=== PATIENT | female | born 1940 | race Caucasian/White ===

== ENCOUNTER → 2017-04-09 17:39 | Outpatient (CLI) | payer MEDICARE, OTHER, SELFPAY | PROVIDERS: Visit Provider Urology | DX: R31.9 Hematuria, unspecified (principal) | CPT/HCPCS: 87086 ==

== ENCOUNTER 2017-05-15 06:47 | Day surgery (SDC) | payer MEDICARE, OTHER, SELFPAY ==
[2017-05-15 07:05] VITALS: BP 122/79; PULSE 60; RESP 18; TEMP 36.6; O2SAT 96; BMI 24.3
[2017-05-15] MEDS: Lubricating Jelly 60 GM Tube 30 GM TOPICAL (08:06)
[2017-05-15] MEDS: Cefazolin 2 GM in 0.9% Normal Saline 100 ML IV (08:34)
[2017-05-15] MEDS: Lidocaine Jelly 2% 20 ML Syringe (URO-JET) 20 APPLIC (08:36)
--- NOTE | 2017-05-15 09:00 | DCINST_ITS ---
Discharge Diet: Light diet - advance as tolerated Discharge Activity: Return to Normal Activity Allergies/Adverse Reactions: Allergies cefuroxime Allergy (Mild, Verified 05/15/17 07:03) Rash Medications to take at Discharge Calcium Carbonate [Calcium] 600 mg PO BID 05/07/17 Cartilage/Collagen/Bor/Hyalur [Joint Health Tablet] 2 each PO DAILY 05/07/17 Cholecalciferol (Vitamin D3) [Vitamin D3] 1,000 unit PO DAILY 05/07/17 Estradiol [Estrace Vaginal Cream] 1 gm VAGINAL MOWE 05/07/17 Flaxseed Oil 1,000 mg PO BID 05/07/17 [place] 3,6,9 Combination No.7 [[place] Dha] 13 mg PO BID 05/07/17 Red Yeast Rice 600 mg PO BID 05/07/17 Rivaroxaban [Xarelto] 10 mg PO DAILY 05/07/17 Ubidecarenone/Vitamin E Mixed [Fvv56-Kni E 200 mg-20 Unit Sfg] 1 each PO BID Cephalexin [Keflex] 500 mg PO Q8 #9 cap 05/15/17 Primary Care Physician: Andreia Blake MD [Primary Care Provider] - Please Follow Up With: Alec Mariee MD - call if need to change appt. When: Appt ThursdayMay 25 at 3 pm.
--- NOTE | 2017-05-15 09:01 | PCM.OPRPT ---
Report of Operation Date of Procedure: 05/15/17 Pre-Operative Diagnosis: Gross hematuria and history of recurrent UTIs Post-Operative Diagnosis: Same, mild right UPJ obstruction Surgery/Procedure Performed:: Cystoscopy and bilateral retrograde pyelograms Description of Surgical Findings:: Testing 123, 76-year-old female who has been reporting gross hematuria off and on and also has a history of recurrent urinary tract infections presents for cystoscopy and bilateral retrograde pyelograms of further evaluation as to the cause of the hematuria and also the infections. After smooth induction of a MAC local she is placed in dorsal lithotomy position the patient was examined the urethra and perineal area are fairly dry and atrophic. The urethra is normal in length. Cystoscopy was performed looked inside the bladder she had a fairly fire friable bladder bled easily with with this with a cystoscopy but no tumors or stones are seen within the bladder she had some mild trigonitis in the trigone area the left ureteral orifice was identified cannulated and retrograde pyelograms pyelogram was performed of the left side and it was normal retrograde Polygram the left side. The right ureteral orifice was identified and cannulated with a Glidewire and a Pollack catheter and right retrograde pyelogram was performed and she had normal contrast going up to the kidney she did have some mild right UPJ obstruction but not clinically significant draining fairly well after the procedure. Bladder was then drained no biopsies were taken the acute Calle also was normal normal and smooth no tumors were seen. At this point she has microscopic hematuria episodes of gross hematuria most likely related to her recurrent UTIs fairly friable easily bleeding bladder as well and some mild trigonitis. Follow-up in the office for a checkup. Type of Anesthesia:: Local MAC Drains: none - Admit VTE Documentation VTE Present on Admission: No VTE Mechan Device Prophylaxis: SCD's VTE Pharm Prophylaxis ordered?: No Reason prophylaxis not ordered:: Treatment Not Indicated
[2017-05-15 09:06] VITALS: BP 109/70; BP 122/79; PULSE 56; RESP 16; TEMP 36.5; O2SAT 93
[2017-05-15 09:10] VITALS: BP 115/67; BP 122/79; PULSE 57; RESP 16; O2SAT 92
[2017-05-15 09:15] VITALS: BP 122/79; BP 123/70; PULSE 57; RESP 16; O2SAT 96
[2017-05-15 09:20] VITALS: BP 115/67; BP 122/79; PULSE 56; RESP 16; TEMP 36.3; O2SAT 95
[2017-05-15 11:15] VITALS: BP 122/79
== END 2017-05-15 11:20 | disposition home or self-care (01) ==
LOC: SDC 06:48 → AC 06:50
PROVIDERS: Family Provider Internal Medicine; PCP Internal Medicine; Visit Provider Urology
PROC: (CPT 74450; principal; 2017-05-15 08:30)
DX: N30.31 Trigonitis with hematuria (principal); N13.5 Crossing vessel and stricture of ureter without hydronephrosis; N30.21 Other chronic cystitis with hematuria; K21.9 Gastro-esophageal reflux disease without esophagitis; Z87.440 Personal history of urinary (tract) infections; Z85.828 Personal history of other malignant neoplasm of skin; Z86.718 Personal history of other venous thrombosis and embolism; Z86.72 Personal history of thrombophlebitis; Z79.01 Long term (current) use of anticoagulants; Z79.899 Other long term (current) drug therapy; Z90.710 Acquired absence of both cervix and uterus
CPT/HCPCS: 52005; 76000; J7120; C1769

== ENCOUNTER → 2017-06-08 09:37 | Outpatient (CLI) | payer MEDICARE, OTHER, SELFPAY | PROVIDERS: Family Provider Internal Medicine; PCP Internal Medicine; Visit Provider Nurse Practitioner Adult Health | DX: N39.0 Urinary tract infection, site not specified (principal) | CPT/HCPCS: 87077; 87086; 87088; 87186 ==

== ENCOUNTER → 2017-07-01 13:17 | Outpatient (CLI) | payer MEDICARE, OTHER, SELFPAY | PROVIDERS: Family Provider Internal Medicine; PCP Internal Medicine; Visit Provider Nurse Practitioner Adult Health | DX: N30.21 Other chronic cystitis with hematuria (principal); R31.0 Gross hematuria | CPT/HCPCS: 87086 ==

== ENCOUNTER → 2017-08-27 09:13 | Outpatient (CLI) | payer MEDICARE, OTHER, SELFPAY | PROVIDERS: Family Provider Internal Medicine; PCP Internal Medicine; Visit Provider Nurse Practitioner Adult Health | DX: N39.0 Urinary tract infection, site not specified (principal) | CPT/HCPCS: 87077; 87086; 87088; 87186 ==

== ENCOUNTER → 2017-11-02 12:58 | Outpatient (CLI) | payer MEDICARE, OTHER, SELFPAY | PROVIDERS: Family Provider Internal Medicine; PCP Internal Medicine; Visit Provider Urology | DX: R30.0 Dysuria (principal) | CPT/HCPCS: 87077; 87086; 87088; 87186 ==

== ENCOUNTER → 2017-11-17 13:42 | Outpatient (CLI) | payer MEDICARE, OTHER, SELFPAY | PROVIDERS: Family Provider Internal Medicine; PCP Internal Medicine; Referring Provider Nurse Practitioner Adult Health; Visit Provider Nurse Practitioner Adult Health | DX: R30.0 Dysuria (principal) | CPT/HCPCS: 87077; 87086; 87088; 87186 ==

== ENCOUNTER → 2018-03-22 16:44 | Outpatient (CLI) | payer MEDICARE, OTHER, SELFPAY ==
--- NOTE | 2018-03-22 | CYSPIN_PTH ---
PATIENT: ARDEN MARTINEZ LOC: [facility] U#:[id number] AGE/SX: 84/F ROOM: RE03/22/[address]: NASREEN oDe : 1940 BED: DIS: SPEC #: [id number] RECD: 03/22/18 16:00 STATUS: ADE SONU #: [id number] BETZY: 03/22/18 00:[address]: Thalia Quinonez NP DEPT: CYTOLOGY RECD BY: Beka Bar ENTERED: 03/23/18 08:22 SP TYPE: CYSPIN FL OT DR: Dr. Andreia Blake MD Tissues: Urine Procedures: Pap Stain (control) Special Stain Group II Cytospin Fluid HEADER OPERATION: Not noted PRE-OP DIAGNOSIS: Gross hematuria TISSUE SUBMITTED: Urine for cytology DIAGNOSIS CYTOLOGY Urine for cytology (cytospin): Negative for malignant cells. AM:vincent 2/13/19 CYTOLOGY STUDY Slides are reviewed. CYTOLOGY GROSS Received is 20 ml of yellow cloudy fluid labeled with the patient's name and and designated per the requisition as urine. Submitted for cytology preparation. 03/23/18 TC:5 CPT: 51959
[2018-03-22 16:56] LABS: Cytology, Body Fluid / CSF SEE PATHOLOGY REPORT
== END ==
PROVIDERS: Family Provider Internal Medicine; PCP Internal Medicine; Referring Provider Nurse Practitioner Adult Health; Visit Provider Nurse Practitioner Adult Health
DX: R31.0 Gross hematuria (principal)
CPT/HCPCS: 87086; 88108; 88313

== ENCOUNTER → 2018-03-25 06:22 | Outpatient (CLI) | payer MEDICARE, OTHER, SELFPAY ==
--- NOTE | 2018-03-25 06:32 | CT_ITS ---
STUDY: CT ABDOMEN AND PELVIS WITH AND WITHOUT CONTRAST REASON FOR EXAM: Female, 77 years old. Gross hematuria RADIATION DOSAGE (If Supplied By Facility): CTDIvol = ( 15.73 ) mGy, DLP = ( 1709.27 ) mGycm TECHNIQUE: Transaxial images were obtained from the dome of the diaphragm to the symphysis pubis without oral contrast. Isovue 300 100mL IV was administered. Sagittal and coronal images were reconstructed. Individualized dose optimization techniques were used for this CT. COMPARISON: None. FINDINGS: The lung bases are clear. The liver is normal. No dilated intrahepatic biliary radicles. A single calculus is in the gallbladder lumen. There is no pericholecystic fluid collection. The spleen is normal. The pancreas is normal. Both adrenals are normal. The left kidney is normal. There is a 1 cm right renal cyst. No hydronephrosis and no abnormal renal calcifications. The stomach is normal. There is no bowel distention, acute appendicitis or diverticulitis. No constricting lesions are seen in large bowel. The abdominal wall is intact with no hernias. There is no ascites or any free intraperitoneal air. No indication of epiploic appendagitis The vascular structures in the retroperitoneum are normal. There is no retrocrural, retroperitoneal or mesenteric adenopathy. Degenerative changes of the facet joints in the lower lumbosacral spine. A speck of air is in the urinary bladder. The bladder is otherwise normal. Previous hysterectomy There is no inguinal or pelvic adenopathy. There is no inguinal hernia. . CT/CT Abd/Pelvis W/WO Contrast IMPRESSION: A single gallstone. A 1 cm right renal cyst. No acute appendicitis or diverticulitis. Electronically Signed: Rob Talamantes MD at 7:33 EST Tel , Service support ,
[2018-03-25 06:56] LABS: CREATININE FINGERSTICK 0.8 mg/dL (0.55-1.02); EGFR FINGERSTICK > 60.0000 mL/min (>60)
== END ==
PROVIDERS: Family Provider Internal Medicine; PCP Internal Medicine; Referring Provider Nurse Practitioner Adult Health; Visit Provider Nurse Practitioner Adult Health
DX: Z01.812 Encounter for preprocedural laboratory examination (principal); R31.0 Gross hematuria
CPT/HCPCS: 74178; Q9967

== ENCOUNTER → 2018-04-19 08:17 | Outpatient (CLI) | payer MEDICARE, OTHER, SELFPAY ==
--- NOTE | 2018-04-19 08:19 | CT_ITS ---
STUDY: CT PELVIS WITH CONTRAST REASON FOR EXAM: Female, 77 years old. Gross hematuria RADIATION DOSAGE (If Supplied By Facility): CTDIvol = ( 28.21 ) mGy, DLP = ( 926.37 ) mGycm TECHNIQUE: Transaxial imaging of the pelvis was performed without oral contrast. Isovue 250 100ml was administered intravenously. Rectal contrast was administered. Individualized dose optimization techniques were used for this CT. COMPARISON: None. FINDINGS: Normal urinary bladder. There is no urinary bladder filling defect or definite mass. Oral contrast is seen throughout the visualized small and large bowel. There is no bowel wall thickening or obstruction. The appendix is not visualized. Excreted contrast is seen in the bilateral ureters. There is no hydroureter. There is no pelvic fluid. There is no pelvic lymphadenopathy or mass lesion. Normal visualized pelvic arteries. Normal abdominal wall. Normal osseous structures. CT/Pelvis WITH IV Contrast IMPRESSION: No urinary bladder filling defect or mass. No acute pelvic pathology. Electronically Signed: Iram Tang, at 15:21 EDT Tel , Service support ,
[2018-04-19 09:11] LABS: CREATININE FINGERSTICK 0.7 mg/dL (0.55-1.02); EGFR FINGERSTICK > 60.0000 mL/min (>60)
== END ==
PROVIDERS: Family Provider Internal Medicine; PCP Internal Medicine; Referring Provider Urology; Visit Provider Urology
DX: R31.0 Gross hematuria (principal)
CPT/HCPCS: 72193; Q9967

== ENCOUNTER 2018-04-23 12:29 | Day surgery (SDC) | payer MEDICARE, OTHER, SELFPAY ==
[2018-04-23 12:52] VITALS: BP 141/74; PULSE 61; RESP 16; TEMP 36.6; O2SAT 100; BMI 24.6
--- NOTE | 2018-04-23 14:11 | HP.PCM_ITS ---
History and Physical Date of Admission: 04/23/18 77-year-old female who continues to have gross hematuria she's alluded us in terms of a diagnosis. Workup so far is been negative review the CAT scan and there was no finding of the CAT scan review the images myself. Her urine was sent for cytology and is can back negative. She does have a history of recurrent UTIs and she also takes blood thinners. Today were to do another cystoscopy. May consider taking her back to surgery and do bilateral ureteroscopy and retrograde's really no finding so far is reports gross hematuria she's also had a hysterectomy. ALLERGIES: cipro - face swells Macrobid - Dizziness, avoid since brother had IPF Sulfa - not effective per pt MEDICATIONS: Daily Multivitamin PO Daily Estrace 0.01 % cream with applicator Calcium Cephalexin 250 mg tablet 1 tablet PO Daily Co Q10 D-Mannose 99 % powder Methenamine Hippurate 1 gram tablet 1 tablet PO Daily take with vitamin C one gram daily for UTI prevention [place]-3 Acid Ethyl Esters Probiotic Formula Xarelto 10 mg tablet Notes: Has had pneumonia vaccine Has not had colonoscopy PSH: Cystoscopy Retrogrades - 05/15/2017 PSH Notes: nodule removed from lung NON- PSH: Hysterectomy - 2002 Patient not documented to have received pneumococcal vaccination PMH: Gross hematuria - 03/22/2018, - 12/08/2017, - 06/01/2017, - 04/09/2017 Other chronic cystitis with hematuria - 12/08/2017, - 04/09/2017 NON- PMH: 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 Tobacco Use Assessment Completed: Used Tobacco in last 30 days? Smoking cessation counseling was provided. Does not use smokeless tobacco. Has never drank. Does not use drugs. Does not drink caffeine. Has not had a blood transfusion. REVIEW OF SYSTEMS: Constitutional: Patient denies fever, chills, weight loss, and weight gain. Genitourinary: Patient reports blood in urine and frequent urinary tract infections. Patient denies frequent urination, urinary retention, get up at night to void, leakage of urine, history of stones, difficulty starting stream, weak stream, and bedwetting. Notes: Updated from previous visit 03/22/2018 with review from patient as noted above. VITAL SIGNS: 04/01/2018 08:18 AM Weight 148 lb / 67.13 kg Height 69 in / 175.26 cm BP 142/80 mmHg BMI 21.9 kg/m? - BMI Counseling was provided. PHYSICAL EXAMINATION: Digital Rectal Exam: Normal sphincter tone. No rectal mass. External Genitalia: No hirsutism, no rash, no scarring, no cyst, no erythematous lesion, no papular lesion, no blanched lesion, no warty lesion. No edema. Urethral Meatus: Normal size. Normal position. No discharge. Urethra: No tenderness, no mass, no scarring. No hypermobility. No leakage. Bladder: Normal to palpation, no tenderness, no mass, normal size. Vagina: No atrophy, no stenosis. No rectocele. No cystocele. No enterocele. Cervix: S/P Hysterectomy. MULTI-SYSTEM PHYSICAL EXAMINATION: Constitutional: Well-nourished. No physical deformities. Normally developed. Good grooming. Neck: Neck symmetrical, not swollen. Normal tracheal position. Respiratory: No labored breathing, no use of accessory muscles. Cardiovascular: Normal temperature, normal extremity pulses, no swelling, no v aricosities. Lymphatic: No enlargement of neck, axillae, groin. Skin: No paleness, no jaundice, no cyanosis. No lesion, no ulcer, no rash. Neurologic / Psychiatric: Oriented to time, oriented to place, oriented to person. No depression, no anxiety, no agitation. Gastrointestinal: No mass, no tenderness, no rigidity, non obese abdomen. Eyes: Normal conjunctivae. Normal eyelids. Ears, Nose, Mouth, and Throat: Left ear no scars, no lesions, no masses. Right ear no scars, no lesions, no masses. Nose no scars, no lesions, no masses. Normal hearing. Normal lips. Musculoskeletal: Normal gait and station of head and neck. PAST DATA REVIEWED: Source Of History: Patient Lab Test Review: Urine Cytology Records Review: Previous Doctor Records, Previous Patient Records Urine Test Review: Urinalysis X-Ray Review: C.T. Abdomen/Pelvis: Reviewed Films. Reviewed Report. Discussed With Patient. PROCEDURES: Flexible Cystoscopy - 30647 Risks, benefits, and some of the potential complications of the procedure were discussed at length with the patient including infection, bleeding, voiding discomfort, urinary retention, fever, chills, sepsis, and others. All questions were answered. Informed consent was obtained. Antibiotic prophylaxis was given. Sterile technique and intraurethral analgesia were used. Meatus: Normal size. Normal location. Normal condition. Urethra: No hypermobility. No leakage. Ureteral Orifices: Normal location. Normal size. Normal shape. Effluxed clear urine. Bladder: reddish lesion in the back of the bladder. air in the dome? The lower urinary tract was carefully examined. The procedure was well-tolerated and without complications. Instructions were given to call the office immediately for bloody urine, difficulty urinating, urinary retention, painful or frequent urination, fever, chills, nausea, vomiting or other illness. The patient stated that she understood these instructions and would comply with them. 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 Abdomen/Pelvis With Rectal Contrast Schedule Procedure: Unspecified Date - Cystoscopy Fulguration - 08846 Document Letter(s): Created for Patient: Clinical Summary The risks, benefits, and some of the possible complications of the proposed procedure were discussed with the patient at length and in detail including the possible need for a bladder biopsy, a urethral biopsy, retrograde pyelograms, resection of a bladder lesion, dilation of the urethra, a postoperative a catheter, placement of a ureteral stent, and others. The possible need for postoperative treatments including further surgical procedures was discussed with the patient. The general risks of the operative procedure and the perioperative period were discussed with the patient at length and in detail including swelling, pain, nausea, vomiting, fever, chills, infection, wound infection, sepsis, renal failure, internal or external bleeding, intraoperative bowel, organ or vascular injuries, postoperative formation of scar tissue, the need for blood transfusions, deep venous thrombosis or blood clots, pulmonary embolus, pneumonia, respiratory failure, heart attack, stroke, and others. All of the patient's questions were answered and he voiced an understanding of these risks, benefits and possible complications. The patient gave fully informed consent to proceed with the procedure. Notes: 77-year-old female presents with gross hematuria. On cystoscopy she has a reddish area in the back of the bladder which could be a fistula site or could just be inflammation. Will do a CT scan with rectal contrast to rule out a fistula from the colon. Will set her up for a cystoscopy and biopsy of the reddish area and fulguration of the site. She'll needle hold her blood thinner for three days for the procedure.
[2018-04-23] MEDS: Ketorolac 15 MG/ML Vial IV (14:22)
--- NOTE | 2018-04-23 14:22 | DCINST_ITS ---
Discharge Diet: Light diet - advance as tolerated Discharge Activity: Return to Normal Activity Suture Line Care: Avoid Pulling/Pushing, Avoid Pinching/Bending Allergies/Adverse Reactions: Allergies cefuroxime Allergy (Mild, Verified 04/23/18 12:50) Rash ciprofloxacin [From Cipro] Adverse Reaction (Verified 04/23/18 12:50) Unknown nitrofurantoin [From Macrobid] Adverse Reaction (Verified 04/23/18 12:50) Unknown Sulfa (Sulfonamide Antibiotics) Adverse Reaction (Verified 04/23/18 12:50) Unknown Medications to take at Discharge Calcium Carbonate [Calcium] 630 mg PO DAILY 05/07/17 Cholecalciferol (Vitamin D3) [Vitamin D3] 2,000 unit PO DAILY 05/07/17 Estradiol [Estrace Vaginal Cream] 1 gm VAGINAL MOWEFR 05/07/17 Red Yeast Rice 600 mg PO DAILY 05/07/17 Rivaroxaban [Xarelto] 10 mg PO DAILY 05/07/17 Ubidecarenone/Vitamin E Mixed [Qyf93-Lox E 200 mg-20 Unit Sfg] 1 each PO DAILY 05/07/17 Cephalexin [Keflex] 250 mg PO DAILY 04/16/18 Krill Oil 500 mg PO DAILY 04/16/18 Lovastatin [Mevacor] 10 mg PO DAILY 04/16/18 Trimethoprim [Trimpex] 100 mg PO BID #6 tablet 04/23/18 The following prescriptions were given: Trimethoprim [Trimpex] 100 mg PO BID #6 tablet Primary Care Physician: Andreia Blake MD [Primary Care Provider] - Test Results: Test results from this visit will be discussed in further detail at your follow- up appointment, if applicable. Please Follow Up With: Alec Mariee MD When: in 2 weeks, please call to make an appointment.
[2018-04-23] MEDS: Cefazolin 2 GM in 0.9% Normal Saline 100 ML IV (14:35)
--- NOTE | 2018-04-23 15:02 | PCM.OPRPT ---
Report of Operation Date of Procedure: 04/23/18 Pre-Operative Diagnosis: History of gross hematuria and bladder lesion also bladder pain and irritation Post-Operative Diagnosis: The same Surgery/Procedure Performed:: Cystoscopy and bladder biopsy and fulguration of biopsy site Description of Surgical Findings:: 77-year-old female who is been reporting gross hematuria cystoscopy in the office only revealed a small reddish lesion in the back of the bladder CAT scan was done which is otherwise unremarkable with no lesions tumors or stones seen no fistula. Today when taken back to the operating room for cystoscopy bladder biopsy as he also been complaining of pain in the urethra and pain in the bladder. 77-year-old female taken back to the operating room at the smooth induction of general anesthesia she was placed supine on the table the urethra vaginal area prepped and draped in usual sterile fashion I did a cystoscopy look down the vaginal canal the lesions on the vaginal canal I did not looked inside the urethra the urethra is normal except the bladder trigone is normal left the urethra is normal the bladder was normal self up towards the dome there was a reddish lesion a picture of this was taken and printed I then biopsied this lesion and then cauterize this completely. We then washed the lesion there is no signs of bleeding patient's bladder was drained patient anesthetic was reversed and she will follow-up in a few weeks to review the biopsy results. Type of Anesthesia:: General Drains: none - Admit VTE Documentation VTE Present on Admission: No VTE Mechan Device Prophylaxis: SCD's
--- NOTE | 2018-04-23 15:05 | BLA_PTH ---
PATIENT: ARDEN MARTINEZ LOC: [facility] [place] U[place][id number] AGE/SX: 77/F ROOM: RE04/23/[address]: Dr. Alec Mariee MD : 1940 BED: DIS: 04/23/2018 SPEC #: [id number] RECD: 04/23/18 16:22 STATUS: ADE REAlessia #: [id number] BETZY: 04/23/18 15:[address]: Alec Mariee DEPT: SURGICAL PATHOLOGY RECD BY: Lidia Abel ENTERED: 04/26/18 09:14 SP TYPE: BLADDER BX OTHR DR: Dr. Andreia Blake MD Tissues: Urinary bladder, NOS Procedures: Surgery Specimen Level IV HEADER OPERATION: Cysto, bladder biopsy, fulguration PRE-OP DIAGNOSIS: Bladder lesion, gross hematuria TISSUE SUBMITTED: Bladder biopsy MICROSCOPIC DIAGNOSIS Urinary bladder tumor, biopsy: Chronic cystitis. See comment. AM:vincent 04/27/18 COMMENT Detrusor muscle is not represented in the biopsy. Clinical correlation is suggested. MICROSCOPIC DESCRIPTION Slides are reviewed. GROSS DESCRIPTION Received in fixative is one container labeled with the patient's name and designated bladder biopsy. The specimen consists of one irregular fragment of light alvarado soft tissue that measures 0.1 x 0.1 x 0.1 cm. The specimen is totally submitted in one cassette. / SJ:vincent 04/26/18 TC:3 CPT: 56962
[2018-04-23 15:10] VITALS: BP 129/71; BP 141/74; PULSE 65; RESP 16; TEMP 36.3; O2SAT 95
[2018-04-23 15:15] VITALS: BP 128/72; BP 141/74; PULSE 61; RESP 16; O2SAT 93
[2018-04-23 15:30] VITALS: BP 130/79; BP 141/74; PULSE 56; RESP 16; O2SAT 96
[2018-04-23 15:42] VITALS: BP 141/74; BP 142/78; PULSE 55; RESP 16; TEMP 36.7; O2SAT 97
[2018-04-23 16:50] VITALS: BP 141/74; BP 157/77; PULSE 63; RESP 18; TEMP 36.6; O2SAT 100
== END 2018-04-23 16:59 | disposition home or self-care (01) ==
LOC: SDC 12:31 → AC 12:31
PROVIDERS: Family Provider Internal Medicine; PCP Internal Medicine; Referring Provider Urology; Visit Provider Urology
PROC: 0TBB8ZX Excision of Bladder, Via Natural or Artificial Opening Endoscopic, Diagnostic (ICD-10-PCS; CPT 52234; principal; 2018-04-23 14:55)
DX: D30.3 Benign neoplasm of bladder (principal); R31.0 Gross hematuria; N30.21 Other chronic cystitis with hematuria; E78.00 Pure hypercholesterolemia, unspecified; K21.9 Gastro-esophageal reflux disease without esophagitis; Z79.01 Long term (current) use of anticoagulants; Z79.899 Other long term (current) drug therapy; Z78.0 Asymptomatic menopausal state; Z86.718 Personal history of other venous thrombosis and embolism; Z87.440 Personal history of urinary (tract) infections
CPT/HCPCS: 00912; 52234; 88305; 93005; J7120; J2405

== ENCOUNTER → 2018-09-06 17:41 | Outpatient (CLI) | payer MEDICARE, OTHER, SELFPAY ==
[2018-09-06 17:43] LABS: Cytology, Body Fluid / CSF SEE PATHOLOGY REPORT
--- NOTE | 2018-09-07 10:00 | CYSPIN_PTH ---
PATIENT: ARDEN MARTINEZ LOC: [facility] U#:[id number] AGE/SX: 84/F ROOM: RE09/06/[address]: Dr. Alec Mariee MD : 1940 BED: DIS: SPEC #: [id number] RECD: 09/07/18 14:08 STATUS: ADE REAlessia #: [id number] BETZY: 09/07/18 10:[address]: Alec Mariee DEPT: CYTOLOGY RECD BY: Estevan Renae ENTERED: 09/07/18 14:09 SP TYPE: CYSPIN FL OTHR DR: Dr. Andreia Blake MD Tissues: Urine Procedures: Pap Stain (control) Special Stain Group II Cytospin Fluid HEADER OPERATION: Urine cytology PRE-OP DIAGNOSIS: Hematuria TISSUE SUBMITTED: Urine DIAGNOSIS CYTOLOGY Urine for cytology (Cytospin): Negative for malignant cells. SJ:mara 09/08/18 COMMENT Clinical correlation and appropriate follow up are necessary. CYTOLOGY STUDY Slides are reviewed. The specimen consists of benign squamous cells, urothelial cells and red blood cells. CYTOLOGY GROSS Received is 60 ml of clear yellow fluid labeled with the patient's name and and designated per the requisition as urine. Submitted for cytology preparation. EMMANUEL/josh 09/07/18 TC:5 CPT: 60685
== END ==
PROVIDERS: Family Provider Internal Medicine; PCP Internal Medicine; Referring Provider Urology; Visit Provider Urology
DX: R31.9 Hematuria, unspecified (principal)
CPT/HCPCS: 88108; 88313

== ENCOUNTER → 2018-12-29 08:18 | Outpatient (CLI) | payer MEDICARE, OTHER, SELFPAY ==
--- NOTE | 2018-12-29 08:21 | RAD_ITS ---
STUDY: X-RAY - ESOPHAGUS (BARIUM SWALLOW) WITH FLUOROSCOPY REASON FOR EXAM: Female, 78 years old. Epigastric pain. TECHNIQUE: 16 view(s) of the esophagus were obtained following swallowing of barium. FLUOROSCOPY TIME (if supplied): (0:49) minutes/seconds COMPARISON: None. FINDINGS: There is no demonstrated esophageal foreign body. There is no demonstrated stricture or mucosal abnormality. Normal gastroesophageal junction, without a demonstrated hiatal hernia. The patient ingested a 12 mm tablet of barium without any difficulty. There is atherosclerotic calcification of the aortic arch with tortuosity of the descending aorta. Normal visualized pulmonary parenchyma. There are diffuse degenerative changes of the visualized thoracic spine. RAD/Esophagus Only IMPRESSION: Normal plain film x-ray examination (barium swallow) of the esophagus. Electronically Signed: Seven Jeffries, at 15:32 EST , Service support ,
== END ==
PROVIDERS: Family Provider Internal Medicine; PCP Internal Medicine; Referring Provider Nurse Practitioner Adult Health; Visit Provider Nurse Practitioner Adult Health
DX: R13.10 Dysphagia, unspecified (principal)
CPT/HCPCS: 74220

== ENCOUNTER → 2019-11-01 | Outpatient (CLI) | payer MEDICARE, OTHER, SELFPAY | END | disposition home or self-care (01) | LOC: LABSPEC 11:12 | PROVIDERS: PCP Internal Medicine; Referring Provider Nurse Practitioner Adult Health; Visit Provider Nurse Practitioner Adult Health | DX: N39.0 Urinary tract infection, site not specified (principal) | CPT/HCPCS: 87086; 87088; 87186 ==